=== PATIENT | female | born 1985 | race Caucasian/White ===

== ENCOUNTER 2019-12-05 15:49 | Inpatient (IN) ==
[2019-12-05 16:21] LABS: Bacteria,Urine Few per hpf (None-Few); Bilirubin,Urine Negative (Negative); Blood,Urine Small (Negative); Clarity,Urine Turbid (Clear); Color,Urine Yellow (Yellow); Glucose,Urine (UA) Normal (Normal); Ketones,Urine 150 mg/dL (Negative); Leukocyte Esterase,Urine Moderate (Negative); Mucus,Urine Few per lpf (None-Few); Nitrite,Urine Negative (Negative); Protein,Urine 50 mg/dL (Neg-Trace); Specific Gravity,Urine > 1.030 (1.010-1.025); Squamous Epithelial Cell,Urine Few per hpf (None-Few); Urobilinogen,Urine Normal (Normal); WBC,Urine 30-50 per hpf (0-3)
[2019-12-05] MEDS ORDERED: *HR* Promethazine 25 MG/ML VIAL IVP ONE (16:26)
[2019-12-05] MEDS ORDERED: 0.9 % Sodium Chloride 1,000 ML IVC ONE (16:26)
[2019-12-05] MEDS ORDERED: Ketorolac 30 MG/ML VIAL IVP ONE (16:26)
[2019-12-05] MEDS ORDERED: *HR* FentaNYL (PF) 100 MCG/2 ML VIAL IVP ONE (16:27)
[2019-12-05 16:53] LABS: Basophils % 0.2 %; Hematocrit 44.1 % (35.3-44.9); Hemoglobin 14.3 g/dL (11.5-15.4); Immature Granulocytes % 0.4 % (0-4); Lymphocytes # 0.4 K/mcL (0.6-4.6); Lymphocytes % 2.7 %; Mean Corpuscular HGB Conc 32.4 g/dL (31.6-35.5); Mean Corpuscular Hemoglobin 29.5 pg (28.0-33.3); Mean Corpuscular Volume 91.1 fL (83.0-100.0); Mean Platelet Volume 9.9 fL (9.4-12.4); Monocytes # 0.2 K/mcL (0.0-1.3); Monocytes % 1.1 %; Neutrophils # 15.1 K/mcL (1.6-8.9); Platelet Count 365 K/mcL (140-400); Red Blood Count 4.84 M/mcL (3.82-4.97); Segmented Neutrophils % 95.6 %; White Blood Count 15.8 K/mcL (4.3-11.1)
[2019-12-05 16:59] LABS: Alanine Aminotransferase 27 Units/L (7-52); Albumin 4.7 g/dL (3.5-5.7); Albumin/Globulin Ratio 1.6 (1.1-2.2); Alkaline Phosphatase 35 Units/L (34-104); Aspartate Amino Transferase 26 Units/L (13-39); BUN/Creatinine Ratio 14 (6-26); Bilirubin,Direct 0.2 mg/dL (0.0-0.2); Bilirubin,Indirect 0.5 mg/dL (0.0-1.0); Bilirubin,Total 0.7 mg/dL (0.3-1.0); Blood Urea Nitrogen 14 mg/dL (6-20); Calcium 9.7 mg/dL (8.6-10.3); Carbon Dioxide 24 mEq/L (23-29); Chloride 103 mEq/L (98-107); Globulin 2.9 g/dL (2.4-3.5); Glucose 107 mg/dL (70-105); Lipase 13 Units/L (11-82); Osmolality,Calculated 287 (280-300); Potassium 3.7 mEq/L (3.5-5.1); Sodium 138 mEq/L (136-145); Total Protein 7.6 g/dL (6.4-8.9); eGFR For African Americans > 60 (> 60); eGFR For Non-African Americans > 60 (> 60)
[2019-12-05] MEDS ORDERED: cefTRIAXone 1,000 MG in Water for inj. (sterile) 10 ML IVP ONE (17:22)
[2019-12-05] MEDS ORDERED: Morphine Sulfate 2 MG/ML SYRINGE IVP PRN (17:45)
[2019-12-05] MEDS ORDERED: Acetaminophen 325 MG TABLET PO PRN (18:39)
[2019-12-05] MEDS ORDERED: *HR* Promethazine 25 MG/ML VIAL IVP PRN (18:39)
[2019-12-05] MEDS ORDERED: *HR* HYDROmorphone 2 MG/ML SYRINGE IVP ONE (18:39)
[2019-12-05] MEDS ORDERED: *HR* OxyCODONE Immed Rel 5 MG TABLET PO PRN (18:39)
[2019-12-05] MEDS ORDERED: *HR* HYDROcodone/Acet 5/325 mg TABLET PO PRN (18:39)
[2019-12-05] MEDS ORDERED: Ringers Solution, Lactated 1,000 ML IVC ONE (18:51)
[2019-12-05] MEDS: *HR* HYDROcodone/Acet 5/325 mg TABLET PO PRN (21:19)
[2019-12-06] MEDS: *HR* OxyCODONE Immed Rel 5 MG TABLET PO PRN ×3 (00:57→23:07)
[2019-12-06 01:59] LABS: Hematocrit 37.2 % (35.3-44.9); Mean Corpuscular HGB Conc 31.7 g/dL (31.6-35.5); Mean Corpuscular Hemoglobin 28.5 pg (28.0-33.3); Mean Corpuscular Volume 89.9 fL (83.0-100.0); Mean Platelet Volume 10.2 fL (9.4-12.4); Platelet Count 273 K/mcL (140-400); Red Blood Count 4.14 M/mcL (3.82-4.97); Red Cell Distribution Width 12.2 % (11.5-14.5); White Blood Count 20.2 K/mcL (4.3-11.1)
[2019-12-06 02:11] LABS: Hemoglobin 11.8 g/dL (11.5-15.4)
[2019-12-06 02:22] LABS: BUN/Creatinine Ratio 13 (6-26); Blood Urea Nitrogen 11 mg/dL (6-20); Calcium 8.4 mg/dL (8.6-10.3); Carbon Dioxide 23 mEq/L (23-29); Chloride 106 mEq/L (98-107); Glucose 144 mg/dL (70-105); Osmolality,Calculated 288 (280-300); Potassium 4.2 mEq/L (3.5-5.1); Sodium 138 mEq/L (136-145); eGFR For African Americans > 60 (> 60); eGFR For Non-African Americans > 60 (> 60)
[2019-12-06] MEDS: *HR* HYDROcodone/Acet 5/325 mg TABLET PO PRN ×3 (05:07→18:10)
[2019-12-06] MEDS: *HR* HYDROmorphone (PF) 1 MG/ML SYRINGE IVP PRN ×2 (05:47→13:01)
[2019-12-06 07:26] LABS: Acinetobacter baumannii by PCR Not Detected (Not Detect); Candida albicans by PCR Not Detected (Not Detect); Candida glabrata by PCR Not Detected (Not Detect); Candida krusei by PCR Not Detected (Not Detect); Candida parapsilosis by PCR Not Detected (Not Detect); Candida tropicalis by PCR Not Detected (Not Detect); Enterobacter cloacae Cmplx PCR Not Detected (Not Detect); Enterococcus by PCR Not Detected (Not Detect); Escherichia coli by PCR DETECTED (Not Detect); Klebsiella oxytoca by PCR Not Detected (Not Detect); Klebsiella pneumoniae by PCR Not Detected (Not Detect); Proteus by PCR Not Detected (Not Detect); Pseudomonas aeruginosa by PCR Not Detected (Not Detect); Serratia marcescens by PCR Not Detected (Not Detect); Staphylococcus aureus by PCR Not Detected (Not Detect); Staphylococcus by PCR Not Detected (Not Detect); Streptococcus agalactiae(B)PCR Not Detected (Not Detect); Streptococcus by PCR Not Detected (Not Detect); Streptococcus pneumoniae PCR Not Detected (Not Detect); Streptococcus pyogenes (A) PCR Not Detected (Not Detect); blaKPC Carbapenem-Resist Gene Not Detected (Not Detect)
[2019-12-06] MEDS ORDERED: cefTRIAXone 2,000 MG in 0.9 % Sodium Chloride Mini Bag 100 ML IVPB SCH (09:00)
[2019-12-06] MEDS ORDERED: cefTRIAXone 1,000 MG in Water for inj. (sterile) 10 ML IVP SCH (09:00)
[2019-12-06] MEDS ORDERED: Ondansetron 4 MG/2 ML VIAL IVP ONE (14:36)
[2019-12-06] MEDS ORDERED: *HR* OxyCODONE Immed Rel 5 MG TABLET PO PRN (14:36)
[2019-12-06] MEDS ORDERED: *HR* Propofol 200 MG/20 ML VIAL IVP ONE (14:49)
[2019-12-06] MEDS ORDERED: *HR* FentaNYL (PF) 100 MCG/2 ML VIAL ONE (14:49)
[2019-12-06] MEDS ORDERED: Lidocaine -MPF 2% 2 ML VIAL ONE ×2 (14:50→14:53)
[2019-12-06] MEDS ORDERED: Ondansetron 4 MG/2 ML VIAL ONE (14:50)
[2019-12-06] MEDS ORDERED: Dexamethasone 4 MG/ML VIAL ONE (14:50)
[2019-12-06] MEDS ORDERED: Famotidine 20 MG/2 ML VIAL ONE (15:01)
[2019-12-06] MEDS ORDERED: Acetaminophen IV 1,000 MG/100 ML BAG ONE (15:01)
[2019-12-06] MEDS ORDERED: Isovue-300 50ML VIAL ONE (15:05)
[2019-12-06] MEDS ORDERED: *HR* Midazolam HCl 2 MG/2 ML VIAL ONE (15:18)
[2019-12-07 01:18] LABS: Basophils % 0.1 %; Hematocrit 35.1 % (35.3-44.9); Hemoglobin 11.2 g/dL (11.5-15.4); Immature Granulocytes % 1.6 % (0-4); Lymphocytes # 0.6 K/mcL (0.6-4.6); Lymphocytes % 3.3 %; Mean Corpuscular HGB Conc 31.9 g/dL (31.6-35.5); Mean Corpuscular Hemoglobin 29.6 pg (28.0-33.3); Mean Corpuscular Volume 92.6 fL (83.0-100.0); Mean Platelet Volume 10.1 fL (9.4-12.4); Monocytes # 0.4 K/mcL (0.0-1.3); Monocytes % 2.3 %; Neutrophils # 15.6 K/mcL (1.6-8.9); Platelet Count 211 K/mcL (140-400); Red Blood Count 3.79 M/mcL (3.82-4.97); Red Cell Distribution Width 12.5 % (11.5-14.5); Segmented Neutrophils % 92.7 %; White Blood Count 16.8 K/mcL (4.3-11.1)
[2019-12-07 01:39] LABS: BUN/Creatinine Ratio 13 (6-26); Blood Urea Nitrogen 13 mg/dL (6-20); Calcium 8.7 mg/dL (8.6-10.3); Carbon Dioxide 24 mEq/L (23-29); Chloride 108 mEq/L (98-107); Glucose 199 mg/dL (70-105); Magnesium 1.9 mg/dL (1.6-2.6); Osmolality,Calculated 290 (280-300); Potassium 3.8 mEq/L (3.5-5.1); Sodium 137 mEq/L (136-145); eGFR For African Americans > 60 (> 60); eGFR For Non-African Americans 60 (> 60)
[2019-12-07] MEDS: *HR* HYDROcodone/Acet 5/325 mg TABLET PO PRN (03:45)
[2019-12-07] MEDS ORDERED: cefTRIAXone 2,000 MG in 0.9 % Sodium Chloride Mini Bag 100 ML IVPB SCH (09:00)
[2019-12-07] MEDS: *HR* Promethazine 25 MG/ML VIAL IVP PRN ×2 (11:07→17:14)
[2019-12-07] MEDS: *HR* OxyCODONE Immed Rel 5 MG TABLET PO PRN ×2 (11:08→23:28)
[2019-12-07] MEDS: *HR* HYDROmorphone (PF) 1 MG/ML SYRINGE IVP PRN ×2 (15:50→21:58)
[2019-12-07] MEDS: *HR* Belladonna Alkaloids/Opium 30 MG RECTAL SUPPOSITORY RC PRN (20:33)
[2019-12-07] MEDS ORDERED: Ondansetron 4 MG/2 ML VIAL IVP ONE (21:03)
[2019-12-08] MEDS: *HR* Belladonna Alkaloids/Opium 30 MG RECTAL SUPPOSITORY RC PRN (03:51)
[2019-12-08] MEDS: *HR* HYDROmorphone (PF) 1 MG/ML SYRINGE IVP PRN ×2 (03:58→16:23)
[2019-12-08 05:36] LABS: Basophils % 0.4 %; Eosinophils # 0.1 K/mcL (0.0-0.6); Eosinophils % 1.1 %; Hematocrit 37.2 % (35.3-44.9); Hemoglobin 11.7 g/dL (11.5-15.4); Immature Granulocytes % 0.6 % (0-4); Lymphocytes # 1.4 K/mcL (0.6-4.6); Lymphocytes % 16.3 %; Mean Corpuscular HGB Conc 31.5 g/dL (31.6-35.5); Mean Corpuscular Hemoglobin 28.7 pg (28.0-33.3); Mean Corpuscular Volume 91.2 fL (83.0-100.0); Mean Platelet Volume 10.5 fL (9.4-12.4); Monocytes # 0.4 K/mcL (0.0-1.3); Neutrophils # 6.4 K/mcL (1.6-8.9); Platelet Count 201 K/mcL (140-400); Red Blood Count 4.08 M/mcL (3.82-4.97); Red Cell Distribution Width 12.7 % (11.5-14.5); Segmented Neutrophils % 76.6 %
[2019-12-08 05:37] LABS: White Blood Count 8.4 K/mcL (4.3-11.1)
[2019-12-08 05:56] LABS: BUN/Creatinine Ratio 10 (6-26); Blood Urea Nitrogen 8 mg/dL (6-20); Calcium 8.1 mg/dL (8.6-10.3); Carbon Dioxide 26 mEq/L (23-29); Chloride 106 mEq/L (98-107); Glucose 101 mg/dL (70-105); Magnesium 1.6 mg/dL (1.6-2.6); Osmolality,Calculated 282 (280-300); Potassium 3.4 mEq/L (3.5-5.1); Sodium 137 mEq/L (136-145); eGFR For African Americans > 60 (> 60); eGFR For Non-African Americans > 60 (> 60)
[2019-12-08] MEDS: *HR* OxyCODONE Immed Rel 5 MG TABLET PO PRN ×2 (07:41→21:49)
[2019-12-08] MEDS: *HR* HYDROcodone/Acet 5/325 mg TABLET PO PRN ×2 (11:27→17:27)
[2019-12-09] MEDS: *HR* HYDROcodone/Acet 5/325 mg TABLET PO PRN ×2 (02:15→11:41)
[2019-12-09 05:54] LABS: Basophils % 0.6 %; Eosinophils # 0.2 K/mcL (0.0-0.6); Eosinophils % 2.3 %; Hematocrit 35.8 % (35.3-44.9); Hemoglobin 11.4 g/dL (11.5-15.4); Immature Granulocytes % 0.5 % (0-4); Lymphocytes # 1.7 K/mcL (0.6-4.6); Mean Corpuscular HGB Conc 31.8 g/dL (31.6-35.5); Mean Corpuscular Hemoglobin 29.4 pg (28.0-33.3); Mean Corpuscular Volume 92.3 fL (83.0-100.0); Mean Platelet Volume 10.2 fL (9.4-12.4); Monocytes # 0.6 K/mcL (0.0-1.3); Monocytes % 9.5 %; Platelet Count 238 K/mcL (140-400); Red Blood Count 3.88 M/mcL (3.82-4.97); Red Cell Distribution Width 12.8 % (11.5-14.5); Segmented Neutrophils % 61.1 %; White Blood Count 6.5 K/mcL (4.3-11.1)
[2019-12-09 06:30] VITALS: BP 131/88
[2019-12-09] MEDS: *HR* OxyCODONE Immed Rel 5 MG TABLET PO PRN (09:22)
[2019-12-11 10:02] LABS: Calculi Mass 50 mg
== END 2019-12-09 12:35 | disposition home or self-care (01) | DRG 854 ==
LOC: EMEROOARM 15:49 → 3ANU 15:49 → SUATTDRO 18:36 → 3ANU 19:42 → SUATTDRO 12-06 16:21
PROVIDERS: ADMIT Internal Medicine; ATTEND Internal Medicine